=== PATIENT | female | born 2000 | race American Indian/Alaskan Native ===

== ENCOUNTER 2018-06-29 12:01 | Emergency (ER) | payer MEDICAID ==
--- NOTE | 2018-06-29 12:10 | Emergency Department Report ---
Blank Doc - Documentation Documentation: This is a 18-year-old female that presents with vaginal bleeding. Stated is p regnant but denies how knowing how long. Denies f/o with OB. This initial assessment diagnostic orders/clinical plan/treatment(s) is/are subject to change based on patient's health status, clinical progression and re- assessment by fellow clinical providers in the ED. Further treatment and workup at subsequent clinical providers discretion. Patient/guardians urged not to elope from ED s their condition may be serious if not clinically assessed and managed. Initial orders include: 1-Patient sent to [facility] for further evaluation and treatment 2- Labs 3- UA 4- US OB
[2018-06-29 12:15] VITALS: BP 147/73
[2018-06-29 12:44] LABS: Bacteria,Urine 1+ /HPF (Negative); Bilirubin,Urine NEG (Negative); Blood,Urine NEG (Negative); Color,Urine Yellow (Yellow); Mucus,Urine FEW /HPF; Protein,Urine <15 mg/dL mg/dL (Negative); Urobilinogen,Urine < 2.0 mg/dL (<2.0)
[2018-06-29 12:47] LABS: Basophils % (Auto) 0.5 % (0.0-1.8); Eosinophils # (Auto) 0.1 K/mm3 (0.0-0.4); Eosinophils % (Auto) 1.5 % (0.0-4.3); Hematocrit 36.8 % (30.3-42.9); Hemoglobin 11.9 gm/dl (10.1-14.3); Lymphocytes % (Auto) 41.1 % (13.4-35.0); Mean Corpuscular HGB Conc 32 % (30-34); Mean Corpuscular Volume 88 fl (79-97); Monocytes # (Auto) 0.3 K/mm3 (0.0-0.8); Monocytes % (Auto) 5.8 % (0.0-7.3); Platelet Count 251 K/mm3 (140-440); Red Blood Count 4.18 M/mm3 (3.65-5.03); Red Cell Distribution Width 15.3 % (13.2-15.2)
--- NOTE | 2018-06-29 14:04 | Emergency Department Report ---
ED Female HPI - General Chief complaint: Vaginal Bleeding Stated complaint: /BLEEDING Time Seen by Provider: 06/29/18 12:04 Source: patient Mode of arrival: Ambulatory Limitations: No Limitations - History of Present Illness Initial comments: This is a 18-year-old female who presents to the ED stating that 5 days ago she was seen at a clinic and got a positive test. Patient states that she has been having intermittent vaginal bleeding since beginning May. Patient states that bleeding is light and spotting. Patient states initially she thought he was a stress cycle but was test was positive 5 days ago. She denies dysuria, fever, chills, nausea vomiting, abdominal pain Complaint: vaginal bleeding - Related Data Allergies Allergy/AdvReac Type Severity Reaction Status Date / Time No Known Allergies Allergy Unverified 06/29/18 12:15 ED Review of Systems ROS: Stated complaint: /BLEEDING Other details as noted in HPI Comment: All other systems reviewed and negative ED Past Medical Hx - Social History Smoking Status: Unknown if ever smoked Substance Use Type: None ED Physical Exam - General Limitations: No Limitations General appearance: alert, in no apparent distress - Head Head exam: Present: atraumatic, normocephalic - Eye Eye exam: Present: normal appearance - ENT ENT exam: Present: mucous membranes moist - Neck Neck exam: Present: normal inspection - Respiratory Respiratory exam: Present: normal lung sounds bilaterally. Absent: respiratory distress - Cardiovascular Cardiovascular Exam: Present: regular rate, normal rhythm. Absent: systolic murmur, diastolic murmur, rubs, gallop - GI/Abdominal GI/Abdominal exam: Present: soft, normal bowel sounds - Extremities Exam Extremities exam: Present: normal inspection - Back Exam Back exam: Present: normal inspection - Neurological Exam Neurological exam: Present: alert, oriented X3 - Psychiatric Psychiatric exam: Present: normal affect, normal mood - Skin Skin exam: Present: warm, dry, intact, normal color. Absent: rash ED Course Vital Signs 06/29/18 12:10 Temperature 98.5 F Pulse Rate 76 Respiratory 16 Rate Blood Pressure 147/73 O2 Sat by Pulse 100 Oximetry ED Medical Decision Making - Lab Data Result diagrams: 06/29/18 15:33 - Radiology Data Radiology results: report reviewed, image reviewed FINDINGS: Uterus: The uterus is homogeneous in echogenicity without focal mass. The uterus measures 6.9 x 3.0 x 4.5 centimeters. No intrauterine or ectopic was seen. Endometrium: The endometrium is normal in echogenicity. The endometrium measures 7 millimeters. Ovaries: There are two complex, hypoechoic lesions in the left ovary with internal septations, one measuring 1.5 centimeters and the other measuring 1.1 centimeters. No right ovarian lesions. Normal flow is seen to the ovaries. The right ovary measures 2.7 x 1.7 x 2.8 centimeters. The left ovary measures 3.4 x 2.0 x 3.0 centimeters. Free fluid: None. IMPRESSION: 1. No intrauterine or ectopic identified. 2. Left ovarian lesions most likely represent hemorrhagic cysts. Recommend follow-up pelvic ultrasound in 6-10 weeks. Transcribed By: MG Dictated By: BEVERLY TORRES MD Electronically Authenticated By: BEVERLY TORRES MD Signed Date/Time: 06/29/18 1453 - Medical Decision Making 18-year-old female presents to ED with incomplete ED course: Pt received ultra sound, CBC, urinalysis, test and quantitative ED All labs within normal limits, Quantitative is lower than last quantitative that was done 5 days ago. Patient brought in a report with her from the clinic showing no quant level of 57. Today there quant is 11. This is an indication patient is an incomplete spontaneous miscarriage Ultrasound shows See reported above Vital signs normalized patient is in no acute distress. I discussed with the patient if follow-up with her [facility]. I discussed all labs and ultrasound findings with the patient. I discussed with the patient that he if bleeding worsens or new symptoms develop to return to ED immediately Critical care attestation.: If time is entered above; I have spent that time in minutes in the direct care of this critically ill patient, excluding procedure time. ED Disposition Clinical Impression: Incomplete Disposition: DC-01 TO HOME OR SELFCARE Is pt being admited?: No Does the pt Need Aspirin: No Condition: Stable Instructions: Spontaneous Miscarriage (ED) Additional Instructions: Make sure to follow up with the [facility] as discussed. Take Motrin as needed for a if you develop abdominal cramping. If you have any worsening symptoms or develop new symptoms please return to ED immediately. Referrals: NIKKI HAYES MD [Primary Care Provider] - 3-5 Days [facility] [Provider Group] - 3-5 Days [facility] [Provider Group] - 3-5 Days Forms: Work/School Release Form(ED)
--- NOTE | 2018-06-29 14:53 | Ultrasound Report ---
FINAL REPORT EXAM: US OB < = 14 WEEKS FETUS HISTORY: vaginal bleeding TECHNIQUE: Grayscale and color doppler ultrasound imaging of the pelvis was performed transabdominal ly and transvaginally. PRIORS: None. FINDINGS: Uterus: The uterus is homogeneous in echogenicity without focal mass. The uterus measures 6.9 x 3.0 x 4.5 centimeters. No intrauterine or ectopic was seen. Endometrium: The endometrium is normal in echogenicity. The endometrium measures 7 millimeters. Ovaries: There are two complex, hypoechoic lesions in the left ovary with internal septations, one me asuring 1.5 centimeters and the other measuring 1.1 centimeters. No right ovarian lesions. Normal fl ow is seen to the ovaries. The right ovary measures 2.7 x 1.7 x 2.8 centimeters. The left ovary measu res 3.4 x 2.0 x 3.0 centimeters. Free fluid: None. IMPRESSION: 1. No intrauterine or ectopic identified. 2. Left ovarian lesions most likely represent hemorrhagic cysts. Recommend follow-up pelvic ultrasoun d in 6-10 weeks.
--- NOTE | 2018-06-29 14:53 | Ultrasound Report ---
FINAL REPORT EXAM: US OB TRANSVAGINAL HISTORY: vaginal bleeding TECHNIQUE: Grayscale and color doppler ultrasound imaging of the pelvis was performed transabdomina lly and transvaginally. PRIORS: None. FINDINGS: Uterus: The uterus is homogeneous in echogenicity without focal mass. The uterus measures 6.9 x 3.0 x 4.5 centimeters. No intrauterine or ectopic was seen. Endometrium: The endometrium is normal in echogenicity. The endometrium measures 7 millimeters. Ovaries: There are two complex, hypoechoic lesions in the left ovary with internal septations, one me asuring 1.5 centimeters and the other measuring 1.1 centimeters. No right ovarian lesions. Normal fl ow is seen to the ovaries. The right ovary measures 2.7 x 1.7 x 2.8 centimeters. The left ovary measu res 3.4 x 2.0 x 3.0 centimeters. Free fluid: None. IMPRESSION: 1. No intrauterine or ectopic identified. 2. Left ovarian lesions most likely represent hemorrhagic cysts. Recommend follow-up pelvic ultrasoun d in 6-10 weeks.
[2018-06-29 15:55] LABS: Basophils % (Auto) 0.7 % (0.0-1.8); Eosinophils # (Auto) 0.1 K/mm3 (0.0-0.4); Eosinophils % (Auto) 2.1 % (0.0-4.3); Hematocrit 34.3 % (30.3-42.9); Hemoglobin 11.2 gm/dl (10.1-14.3); Lymphocytes # (Auto) 2.5 K/mm3 (1.2-5.4); Lymphocytes % (Auto) 47.2 % (13.4-35.0); Mean Corpuscular HGB Conc 33 % (30-34); Mean Corpuscular Volume 87 fl (79-97); Monocytes # (Auto) 0.2 K/mm3 (0.0-0.8); Monocytes % (Auto) 4.7 % (0.0-7.3); Platelet Count 250 K/mm3 (140-440); Red Blood Count 3.96 M/mm3 (3.65-5.03); Red Cell Distribution Width 15.2 % (13.2-15.2)
== END 2018-06-29 16:42 | disposition home or self-care (01) ==
LOC: ED 12:01
DX: O03.4 Incomplete spontaneous abortion without complication (principal); Z3A.01 Less than 8 weeks gestation of pregnancy
CPT/HCPCS: 36415; 76801; 76817; 81001; 84702; 85025; 86850; 86900; 86901; 99284

== ENCOUNTER 2018-09-03 11:33 | Emergency (ER) | payer MEDICAID ==
[2018-09-03 12:33] VITALS: BP 146/90
--- NOTE | 2018-09-03 12:41 | Emergency Department Report ---
ED Recheck HPI - General Chief Complaint: Dental/Oral Stated Complaint: RT SIDE TOOTH PAIN/SWELLING Time Seen by Provider: 09/03/18 12:31 Source: patient Mode of arrival: Ambulatory Limitations: No Limitations - History of Present Illness Initial Comments: This is a 18-year-old female that present with dental pain. Patient stated was seen by a dentist and was prescribed motrin with no relief. Patient also was prescribed clinda. Patient stated was instructed to come to the ED for stronger pain medications. Patient denies any fever, chills, headache, nausea, vomiting, chest pain, or shortness of breathe. Denies any allergies. MD Complaint: medication refill request -: days(s) (2) Returns Today for: request for prescription Symptoms Since Prior Visit: no new symptoms Associated Symptoms: none. denies: fever, chills, chest pain, shortness of breath, rash, malaise, nasuea, abdominal pain - Related Data Previous Rx's Medication Instructions Recorded Last Taken Type Acetaminophen/Codeine [Tylenol 1 tab PO Q6H PRN #12 tab 09/03/18 Unknown Rx /Codeine # 3 tab] Allergies Allergy/AdvReac Type Severity Reaction Status Date / Time No Known Allergies Allergy Unverified 06/29/18 12:15 ED Review of Systems ROS: Stated complaint: RT SIDE TOOTH PAIN/SWELLING Other details as noted in HPI Constitutional: denies: chills, fever Eyes: denies: eye pain, eye discharge, vision change ENT: dental pain. denies: ear pain, throat pain Respiratory: denies: cough, shortness of breath, wheezing Cardiovascular: denies: chest pain, palpitations Endocrine: no symptoms reported Gastrointestinal: denies: abdominal pain, nausea, diarrhea Genitourinary: denies: urgency, dysuria, discharge Musculoskeletal: denies: back pain, joint swelling, arthralgia Skin: denies: rash, lesions Neurological: denies: headache, weakness, paresthesias Psychiatric: denies: anxiety, depression Hematological/Lymphatic: denies: easy bleeding, easy bruising ED Past Medical Hx - Past Medical History Previous Medical History?: No - Surgical History Past Surgical History?: No - Social History Smoking Status: Unknown if ever smoked Substance Use Type: None - Medications Home Medications: Home Medications Medication Instructions Recorded Confirmed Last Taken Type Acetaminophen/Codeine [Tylenol 1 tab PO Q6H PRN #12 tab 09/03/18 Unknown Rx /Codeine # 3 tab] ED Physical Exam - General Limitations: No Limitations General appearance: alert, in no apparent distress - Head Head exam: Present: atraumatic, normocephalic - ENT ENT exam: Present: normal exam, other (no facial swelling. no abscess) - Neck Neck exam: Present: normal inspection, full ROM ED Course Vital Signs 09/03/18 12:27 Temperature 98.9 F Pulse Rate 71 Respiratory 16 Rate Blood Pressure 146/90 - Reevaluation(s) Reevaluation #1: 09/03/18 12:39 Patient is speaking in full sentences with no signs of distress noted. Critical care attestation.: If time is entered above; I have spent that time in minutes in the direct care of this critically ill patient, excluding procedure time. ED Disposition Clinical Impression: Pain, dental Disposition: DC-01 TO HOME OR SELFCARE Is pt being admited?: No Does the pt Need Aspirin: No Condition: Stable Instructions: Acetaminophen/Codeine (By mouth) Prescriptions: Acetaminophen/Codeine [Tylenol /Codeine # 3 tab] 1 tab PO Q6H PRN #12 tab PRN Reason: Pain , Severe (7-10) Referrals: PRIMARY CARE, [Referring] - 3-5 Days MIGUELINA LO MD [Staff Physician] - 3-5 Days [facility] [Outside] - 3-5 Days
== END 2018-09-03 13:00 | disposition home or self-care (01) ==
LOC: ED 11:33
DX: K08.89 Other specified disorders of teeth and supporting structures (principal)
CPT/HCPCS: 99282

== ENCOUNTER 2018-10-23 09:37 | Emergency (ER) | payer MEDICAID ==
[2018-10-23 09:58] VITALS: BP 129/82
[2018-10-23 10:48] LABS: HCG Qualitative,Urine Positive (Negative)
--- NOTE | 2018-10-23 11:09 | Emergency Department Report ---
ED General Adult HPI - General Chief complaint: Dental/Oral Stated complaint: /TOOTH ABSCESS Time Seen by Provider: 10/23/18 11:08 Source: patient, RN notes reviewed Mode of arrival: Ambulatory Limitations: No Limitations - History of Present Illness Initial comments: This is a 18-year-old female. The patient is not known to this provider previ ously. The patient presents to the emergency room with 2 complaints Complaint #1, dental pain, close to Teeth numbers 29, 30, 31. Reportedly saw a dentist yesterday, was prescribed medication, ibuprofen, and one of the prescription that the patient cannot recall. She wants to note the prescriptions are safe. Patient was not able to tell me the name of the second prescription. She denies headache, neck pain, chest pain, abdominal pain, shortness of breath irritated/obstructive urinary symptoms. She has gingival discomfort, but denies exquisite sensitivity to hot, cold. Complaint #2, request for test confirmation. Took a home test yesterday. It is reportedly positive. Last menstrual period 08/11/2018. Denies urinary symptoms, vaginal bleeding, lower abdominal pain and/or cramping. -: Sudden Location: mouth Radiation: non-radiation Quality: aching Consistency: intermittent Improves with: rest Worsens with: eating, movement Associated Symptoms: denies other symptoms - Related Data Previous Rx's Medication Instructions Recorded Last Taken Type Acetaminophen [Non-Aspirin Extra 500 mg PO Q6HR PRN #30 tablet 10/23/18 Unknown Rx Strength] Chlorhexidine Mouthwash [Peridex] 15 ml MM BID #1 bottle 10/23/18 Unknown Rx Penicillin Vk [Veetids TAB] 500 mg PO Q8HR #42 tablet 10/23/18 Unknown Rx Vit-Fe Fumar-FA [ 1 tab PO QDAY #30 tablet 10/23/18 Unknown Rx Vitamin] Allergies Allergy/AdvReac Type Severity Reaction Status Date / Time lactose Allergy Rash Verified 10/23/18 09:39 ED Review of Systems ROS: Stated complaint: /TOOTH ABSCESS Other details as noted in HPI Constitutional: denies: fever Eyes: denies: eye discharge ENT: dental pain Respiratory: denies: cough Cardiovascular: denies: chest pain, palpitations Gastrointestinal: denies: abdominal pain Genitourinary: denies: dysuria Musculoskeletal: denies: back pain, arthralgia Skin: denies: lesions Neurological: denies: headache, weakness ED Past Medical Hx - Past Medical History Previous Medical History?: No - Surgical History Past Surgical History?: No - Social History Smoking Status: Current Every Day Smoker Substance Use Type: Alcohol - Medications Home Medications: Home Medications Medication Instructions Recorded Confirmed Last Taken Type Acetaminophen [Non-Aspirin Extra 500 mg PO Q6HR PRN #30 tablet 10/23/18 Unknown Rx Strength] Chlorhexidine Mouthwash [Peridex] 15 ml MM BID #1 bottle 10/23/18 Unknown Rx Penicillin Vk [Veetids TAB] 500 mg PO Q8HR #42 tablet 10/23/18 Unknown Rx Vit-Fe Fumar-FA [ 1 tab PO QDAY #30 tablet 10/23/18 Unknown Rx Vitamin] ED Physical Exam - General Limitations: No Limitations General appearance: alert, in no apparent distress - Head Head exam: Present: atraumatic, normocephalic - Eye Eye exam: Present: normal appearance, EOMI. Absent: nystagmus - ENT ENT exam: Present: normal exam, normal orophraynx, mucous membranes moist, normal external ear exam, other (minimal gingival swelling noted along the lateral border of teeth #29, 30. There is no tenderness to percussion. There is no stridor or dysphonia.) - Neck Neck exam: Present: normal inspection, full ROM. Absent: tenderness, meningismus - Respiratory Respiratory exam: Present: normal lung sounds bilaterally. Absent: respiratory distress - Cardiovascular Cardiovascular Exam: Present: regular rate, normal rhythm, normal heart sounds. Absent: bradycardia, tachycardia, irregular rhythm, systolic murmur, diastolic murmur, rubs, gallop - GI/Abdominal GI/Abdominal exam: Present: soft. Absent: distended, tenderness, guarding, rebound, rigid, pulsatile mass - Extremities Exam Extremities exam: Present: normal inspection, full ROM, other (2+ pulses noted in the bilateral upper extremities. There is no long bony tenderness. Muscular compartment soft.) - Back Exam Back exam: Present: normal inspection, full ROM. Absent: tenderness, CVA tenderness (R), CVA tenderness (L), paraspinal tenderness, vertebral tenderness - Neurological Exam Neurological exam: Present: alert, normal gait, other (Extraocular movements intact. Tongue midline. No facial droop. Facial sensation intact to light touch in the V1, V2, V3 distribution bilaterally. 5 and 5 strength in 4 extremities.. Sensation is intact to light touch in 4 extremities.). Absent: motor sensory deficit - Psychiatric Psychiatric exam: Present: normal affect, normal mood - Skin Skin exam: Present: warm, dry, intact, normal color. Absent: rash ED Course Vital Signs 10/23/18 09:56 Temperature 98.7 F Pulse Rate 81 Respiratory 18 Rate Blood Pressure 129/82 O2 Sat by Pulse 98 Oximetry ED Medical Decision Making - Lab Data Vital Signs 10/23/18 09:56 Temperature 98.7 F Pulse Rate 81 Respiratory 18 Rate Blood Pressure 129/82 O2 Sat by Pulse 98 Oximetry Lab Results 10/23/18 Range/Units 10:35 Urine HCG, Qual Positive A (Negative) - Medical Decision Making Differential diagnosis, including not limited to: Dentalgia, gingivitis, encounter for test Assessment and plan: 18-year-old female with 2 complaints. Complaint #1, encounter for test. Urinalysis positive. No abdominal pain or tenderness. Does not require emergency imaging or dedicated laboratory studies. Counseled to follow up in outpatient [facility] doctor to initiate outpatient care. Counseled to discontinue ibuprofen, Motrin, Naprosyn, NSAID consumption. Counseled that she may qualify for emergency Medicaid. Complaint #2, dental discomfort. Discontinue ibuprofen. Initiate oral antibiotics. Initiate chlorhexidine. Acetaminophen for pain. Outpatient dental follow-up. Critical care attestation.: If time is entered above; I have spent that time in minutes in the direct care of this critically ill patient, excluding procedure time. ED Disposition Clinical Impression: Dentalgia, Encounter for test, result positive Disposition: DC-01 TO HOME OR SELFCARE Is pt being admited?: No Condition: Stable Additional Instructions: Do not take Motrin, ibuprofen, Naprosyn, Aleve. Please get the name of the second prescription that the dentist provided to the patient yesterday, and consult a medical provider as soon as possible to determine safety of this particular medication in . As the medication is not present currently in the emergency room, and the patient was not able to provide the name of the medication to the medical provider, medical recommendations for the second prescription are not able to be delivered. Please follow-up with your outpatient dentist as scheduled. Use the chlorhexidine mouthwash as directed, take the acetaminophen as needed for pain, and take the antibiotics as directed. Dictated vitamins as directed, and follow up with an outpatient [facility] doctor to initiate outpatient care. Please return to the emergency room right away with you, worsened or different symptoms, or symptoms not present on the initial emergency room evaluation. Referrals: [facility] [Primary Care Provider] - 3-5 Days [facility] [Provider Group] - 3-5 Days [facility] [Provider Group] - 3-5 Days [facility] [Provider Group] - 3-5 Days [facility] [Outside] - 3-5 Days
== END 2018-10-23 11:34 | disposition home or self-care (01) ==
LOC: ED 09:37
DX: O26.891 Other specified pregnancy related conditions, first trimester (principal); K08.89 Other specified disorders of teeth and supporting structures; Z3A.01 Less than 8 weeks gestation of pregnancy; F17.200 Nicotine dependence, unspecified, uncomplicated
CPT/HCPCS: 81025

== ENCOUNTER 2018-11-19 20:18 | Emergency (ER) | payer MEDICAID ==
--- NOTE | 2018-11-19 21:12 | Event Note ---
ED Screening Note ED Screening Note: states she is 11 weeks states she been to OB for confirmation of her states notice a small amount of bleeding today states was diagnosed with a UTI 2-3 days ago, has not started her abx no abd pain [employer]: Ijeomacycle had her first US on 10/16/18 /P:0/A:0 This initial assessment/diagnostic orders/clinical plan/treatment(s) is/are subject to change based on patients health status, clinical progression and re- assessment by fellow clinical providers in the ED. Further treatment and workup at subsequent clinical providers discretion. Patient/guardian urged not to elope from the ED as their condition may be serious if not clinically assessed and managed. Initial orders include: labs, US, UA
[2018-11-19 21:15] VITALS: BP 131/56
[2018-11-19 21:47] LABS: Basophils % (Auto) 0.5 % (0.0-1.8); Eosinophils # (Auto) 0.1 K/mm3 (0.0-0.4); Eosinophils % (Auto) 1.3 % (0.0-4.3); Hematocrit 34.4 % (30.3-42.9); Hemoglobin 11.4 gm/dl (10.1-14.3); Lymphocytes # (Auto) 2.6 K/mm3 (1.2-5.4); Lymphocytes % (Auto) 33.9 % (13.4-35.0); Mean Corpuscular HGB Conc 33 % (30-34); Mean Corpuscular Volume 88 fl (79-97); Monocytes # (Auto) 0.6 K/mm3 (0.0-0.8); Monocytes % (Auto) 7.6 % (0.0-7.3); Platelet Count 315 K/mm3 (140-440); Red Blood Count 3.89 M/mm3 (3.65-5.03); Red Cell Distribution Width 17.3 % (13.2-15.2)
--- NOTE | 2018-11-19 22:16 | Ultrasound Report ---
Obstetrical ultrasound first trimester INDICATION: Pelvic pain with vaginal bleeding FINDINGS: Single intrauterine with a crown-rump length that measures 52 mm measuring 11 wee ks and 6 days. The heart rates 169 bpm. No free fluid appreciated. Both ovaries are unremarkabl e. IMPRESSION: Single living intrauterine measuring about 11 weeks and 6 days, as above. Signer Name: Ceferino Garsia MD Signed: 11/19/2018 10:12 PM Workstation Name: [id number]
[2018-11-19 22:42] LABS: Bacteria,Urine 4+ /HPF (Negative); Bilirubin,Urine NEG (Negative); Blood,Urine NEG (Negative); Color,Urine Amber (Yellow); Mucus,Urine 3+ /HPF; Urobilinogen,Urine < 2.0 mg/dL (<2.0)
--- NOTE | 2018-11-20 00:51 | Emergency Department Report ---
ED Female HPI - General Chief complaint: Chest Pain Stated complaint: VAGINAL BLEEDING Time Seen by Provider: 11/19/18 21:09 Source: patient Mode of arrival: Ambulatory Limitations: No Limitations - History of Present Illness MD Complaint: vaginal bleeding, vaginal discharge - Related Data Previous Rx's Medication Instructions Recorded Last Taken Type Acetaminophen [Non-Aspirin Extra 500 mg PO Q6HR PRN #30 tablet 10/23/18 Unknown Rx Strength] Chlorhexidine Mouthwash [Peridex] 15 ml MM BID #1 bottle 10/23/18 Unknown Rx Penicillin Vk [Veetids TAB] 500 mg PO Q8HR #42 tablet 10/23/18 Unknown Rx Vit-Fe Fumar-FA [ 1 tab PO QDAY #30 tablet 10/23/18 Unknown Rx Vitamin] Nitrofurantoin [place]/M-Cryst 100 mg PO Q12HR #14 capsule 11/20/18 Unknown Rx [Macrobid CAP] metroNIDAZOLE [Flagyl] 2,000 mg PO ONCE #4 tab 11/20/18 Unknown Rx Allergies Allergy/AdvReac Type Severity Reaction Status Date / Time lactose Allergy Rash Verified 10/23/18 09:39 ED Review of Systems ROS: Stated complaint: VAGINAL BLEEDING Other details as noted in HPI ED Past Medical Hx - Past Medical History Previous Medical History?: Yes Hx Hypertension: No Hx CVA: No Hx Heart Attack/AMI: No Hx Congestive Heart Failure: No Hx Diabetes: No Hx Deep Vein Thrombosis: No Hx Pulmonary Embolism: No Hx GERD: No Hx Liver Disease: No Hx Renal Disease: No Hx of Cancer: No Hx Sickle Cell Disease: No Hx Arthritis: No Hx Headaches / Migraines: No Hx Seizures: No Hx Kidney Stones: No Hx Psychiatric Treatment: No Hx Asthma: No Hx COPD: No Hx Tuberculosis: No Hx Dementia: No Hx HIV: No - Surgical History Past Surgical History?: No Hx Coronary Stent: No Hx Open Heart Surgery: No Hx Pacemaker: No Hx Internal Defibrillator: No Hx Cholecystectomy: No Hx Appendectomy: No Hx Breast Surgery: No - Social History Smoking Status: Current Some Day Smoker Substance Use Type: None - Medications Home Medications: Home Medications Medication Instructions Recorded Confirmed Last Taken Type Acetaminophen [Non-Aspirin Extra 500 mg PO Q6HR PRN #30 tablet 10/23/18 Unknown Rx Strength] Chlorhexidine Mouthwash [Peridex] 15 ml MM BID #1 bottle 10/23/18 Unknown Rx Penicillin Vk [Veetids TAB] 500 mg PO Q8HR #42 tablet 10/23/18 Unknown Rx Vit-Fe Fumar-FA [ 1 tab PO QDAY #30 tablet 10/23/18 Unknown Rx Vitamin] Nitrofurantoin [place]/M-Cryst 100 mg PO Q12HR #14 capsule 11/20/18 Unknown Rx [Macrobid CAP] metroNIDAZOLE [Flagyl] 2,000 mg PO ONCE #4 tab 11/20/18 Unknown Rx ED Physical Exam - General Limitations: No Limitations ED Course Vital Signs 11/19/18 21:10 Temperature 99 F Pulse Rate 67 Respiratory 18 Rate Blood Pressure 131/56 Blood Pressure 131/56 [Right] O2 Sat by Pulse 100 Oximetry ED Medical Decision Making - Lab Data Result diagrams: 11/19/18 21:31 - Medical Decision Making 18-year-old, 11 week 6 day female with excessive vaginal discharge and obvious chicken decent bacterial vaginosis on her wet prep is polymorph cells, 4 area still exists. Advised her to follow up with COFFEE SHOP ATTENDANT for definitive management of these infection and GC should provide her with Flagyl and Zithromax today, which is safe for . Discussed ultrasound report and safe sex and she been advised to refrain from sex until clear, by her COFFEE SHOP ATTENDANT Critical care attestation.: If time is entered above; I have spent that time in minutes in the direct care of this critically ill patient, excluding procedure time. ED Disposition Clinical Impression: Trichomonal infection, Bacterial vaginal infection, Yeast infection Disposition: DC-01 TO HOME OR SELFCARE Is pt being admited?: No Does the pt Need Aspirin: No Condition: Stable Instructions: Bacterial Vaginosis (ED), Trichomoniasis (ED), Safe Sex (ED), Sexually Transmitted Diseases (ED), Vulvovaginal Candidiasis (ED) Additional Instructions: Please call your COFFEE SHOP ATTENDANT for further treatment. He did have yeast infection, which also wants treatment medications as category C or greater sneezy approval before implementation. There is also a strong. Given the polymorph cells on y our prep of having a gonorrhea or chlamydia infection. Please follow up close again with the COFFEE SHOP ATTENDANT for for treatment of this as well. Please oral sexual contact until you are cleared by COFFEE SHOP ATTENDANT Prescriptions: metroNIDAZOLE [Flagyl] 2,000 mg PO ONCE #4 tab Nitrofurantoin [place]/M-Cryst [Macrobid CAP] 100 mg PO Q12HR #14 capsule Referrals: LANDON BRAY MD [Primary Care Provider] - 3-5 Days Forms: STI Treatment and Prevention
[2018-11-20] MEDS ORDERED: ZITHROMAX PO STA (01:42)
== END 2018-11-20 02:04 | disposition home or self-care (01) ==
LOC: ED 20:18
DX: N76.0 Acute vaginitis (principal); B37.9 Candidiasis, unspecified; A59.9 Trichomoniasis, unspecified; F17.200 Nicotine dependence, unspecified, uncomplicated
CPT/HCPCS: 36415; 76801; 81001; 84702; 85025; 86900; 86901; 87086; 87210; 87591

== ENCOUNTER 2018-11-26 07:27 | Emergency (ER) | payer MEDICAID ==
[2018-11-26 08:02] LABS: Basophils % (Auto) 0.5 % (0.0-1.8); Eosinophils # (Auto) 0.1 K/mm3 (0.0-0.4); Eosinophils % (Auto) 0.8 % (0.0-4.3); Hemoglobin 11.4 gm/dl (10.1-14.3); Lymphocytes # (Auto) 1.7 K/mm3 (1.2-5.4); Lymphocytes % (Auto) 25.3 % (13.4-35.0); Mean Corpuscular HGB Conc 34 % (30-34); Mean Corpuscular Volume 88 fl (79-97); Monocytes # (Auto) 0.2 K/mm3 (0.0-0.8); Monocytes % (Auto) 3.1 % (0.0-7.3); Platelet Count 306 K/mm3 (140-440); Red Blood Count 3.88 M/mm3 (3.65-5.03); Red Cell Distribution Width 16.7 % (13.2-15.2)
[2018-11-26 08:18] LABS: Bacteria,Urine 1+ /HPF (Negative); Bilirubin,Urine NEG (Negative); Blood,Urine NEG (Negative); Calcium Oxalate Crystals,Urine 2+; Hyaline Casts,Urine 49 /LPF; Mucus,Urine 3+ /HPF; Urobilinogen,Urine < 2.0 mg/dL (<2.0)
[2018-11-26 08:21] LABS: Color,Urine Yellow (Yellow)
--- NOTE | 2018-11-26 08:21 | Emergency Department Report ---
ED General Adult HPI - General Chief complaint: Syncope Stated complaint: DIZZY/HYPERVENTALATE Time Seen by Provider: 11/26/18 08:04 Source: EMS Mode of arrival: Ambulatory Limitations: No Limitations - History of Present Illness Initial comments: This is a 18-year-old presents to ED at approximately 12 weeks followed by POKER MANAGER at my [facility] for care complaining having an episode this morning she was on her way to interview. Patient states that she has smoked half a block roughly around 4 AM this morning in and was on no weight a bus stop when she started experiencing his symptoms. Patient states that she felt shaky Lynn body twitching while she was waiting for the bus. Patient does not recall passing out or losing consciousness. She denies any pain, dizziness, chest pain prior to start of episode. She states she has no history of seizures, anxiety disorders, syncope in the past. Patient denies fevers/chills/nausea vomiting/abdominal pain/chest pain/vaginal bleeding/vaginal discharge or pelvic pain or dysuria - Related Data Previous Rx's Medication Instructions Recorded Last Taken Type Acetaminophen [Non-Aspirin Extra 500 mg PO Q6HR PRN #30 tablet 10/23/18 Unknown Rx Strength] Chlorhexidine Mouthwash [Peridex] 15 ml MM BID #1 bottle 10/23/18 Unknown Rx Penicillin Vk [Veetids TAB] 500 mg PO Q8HR #42 tablet 10/23/18 Unknown Rx Vit-Fe Fumar-FA [ 1 tab PO QDAY #30 tablet 10/23/18 Unknown Rx Vitamin] Nitrofurantoin [place]/M-Cryst 100 mg PO Q12HR #14 capsule 11/20/18 Unknown Rx [Macrobid CAP] metroNIDAZOLE [Flagyl] 2,000 mg PO ONCE #4 tab 11/20/18 Unknown Rx Allergies Allergy/AdvReac Type Severity Reaction Status Date / Time lactose Allergy Rash Verified 10/23/18 09:39 ED Review of Systems ROS: Stated complaint: DIZZY/HYPERVENTALATE Other details as noted in HPI Comment: All other systems reviewed and negative ED Past Medical Hx - Past Medical History Previous Medical History?: No Hx Hypertension: No Hx CVA: No Hx Heart Attack/AMI: No Hx Congestive Heart Failure: No Hx Diabetes: No Hx Deep Vein Thrombosis: No Hx Pulmonary Embolism: No Hx GERD: No Hx Liver Disease: No Hx Renal Disease: No Hx Sickle Cell Disease: No Hx Arthritis: No Hx Headaches / Migraines: No Hx Seizures: No Hx Kidney Stones: No Hx Psychiatric Treatment: No Hx Asthma: No Hx COPD: No Hx Tuberculosis: No Hx Dementia: No Hx HIV: No - Surgical History Past Surgical History?: No Hx Coronary Stent: No Hx Open Heart Surgery: No Hx Pacemaker: No Hx Internal Defibrillator: No Hx Cholecystectomy: No Hx Appendectomy: No Hx Breast Surgery: No - Social History Smoking Status: Never Smoker Substance Use Type: Marijuana - Medications Home Medications: Home Medications Medication Instructions Recorded Confirmed Last Taken Type Acetaminophen [Non-Aspirin Extra 500 mg PO Q6HR PRN #30 tablet 10/23/18 Unknown Rx Strength] Chlorhexidine Mouthwash [Peridex] 15 ml MM BID #1 bottle 10/23/18 Unknown Rx Penicillin Vk [Veetids TAB] 500 mg PO Q8HR #42 tablet 10/23/18 Unknown Rx Vit-Fe Fumar-FA [ 1 tab PO QDAY #30 tablet 10/23/18 Unknown Rx Vitamin] Nitrofurantoin [place]/M-Cryst 100 mg PO Q12HR #14 capsule 11/20/18 Unknown Rx [Macrobid CAP] metroNIDAZOLE [Flagyl] 2,000 mg PO ONCE #4 tab 11/20/18 Unknown Rx ED Physical Exam - General Limitations: No Limitations General appearance: alert, in no apparent distress - Head Head exam: Present: atraumatic, normocephalic, normal inspection - Eye Eye exam: Present: normal appearance, PERRL Pupils: Present: normal accommodation - ENT ENT exam: Present: mucous membranes moist - Neck Neck exam: Present: normal inspection, full ROM. Absent: tenderness, lymphadenopathy - Respiratory Respiratory exam: Present: normal lung sounds bilaterally. Absent: respiratory distress, wheezes, rales - Cardiovascular Cardiovascular Exam: Present: regular rate, normal rhythm. Absent: systolic murmur, diastolic murmur, rubs, gallop - GI/Abdominal GI/Abdominal exam: Present: soft, normal bowel sounds. Absent: distended, tenderness, guarding - Extremities Exam Extremities exam: Present: normal inspection, full ROM - Back Exam Back exam: Present: normal inspection, full ROM. Absent: tenderness, CVA tenderness (R), CVA tenderness (L) - Neurological Exam Neurological exam: Present: alert, oriented X3, CN II-XII intact, normal gait - Psychiatric Psychiatric exam: Present: normal affect, normal mood - Skin Skin exam: Present: warm, dry, intact, normal color. Absent: rash ED Course Vital Signs 11/26/18 07:35 Temperature 98.3 F Pulse Rate 86 Respiratory 16 Rate Blood Pressure 141/73 O2 Sat by Pulse 100 Oximetry ED Medical Decision Making - Lab Data Result diagrams: 11/26/18 07:49 11/26/18 07:49 - Medical Decision Making This is a 18-year-old female who presents to ED with a mild cystitis. CBC, BMP, urinalysis and test performed. All labs within normal limits. Patient mildly dehydrated. Urinalysis positive for leukocyte esterase, WBCs, trace ketones Discussed signs with patient. Discussed the patient to increase hydration. Discussed follow-up with her POKER MANAGER. Discussed cessation of smoking Critical care attestation.: If time is entered above; I have spent that time in minutes in the direct care of this critically ill patient, excluding procedure time. ED Disposition Clinical Impression: Cystitis, Intermittent lightheadedness Disposition: TO HOME OR SELFCARE Is pt being admited?: No Does the pt Need Aspirin: No Condition: Stable Instructions: Urinary Tract Infection in Women (ED), Lightheadedness (ED), (ED) Additional Instructions: Make sure to follow up with the primary care physician as well as your POKER MANAGER as discussed. Take all your medications as you've been prescribed. If you have any worsening symptoms or develop new symptoms please return to ED immediately. Referrals: LANDON BRAY MD [Primary Care Provider] - 3-5 Days [facility] [Provider Group] - 3-5 Days Forms: Work/School Release Form(ED) Time of Disposition: 10:01
[2018-11-26 08:25] LABS: Alanine Aminotransferase 9 units/L (7-56); Albumin 3.7 g/dL (3.9-5); BUN/Creatinine Ratio 13; Blood Urea Nitrogen 8 mg/dL (7-17); Calcium 9.7 mg/dL (8.4-10.2); Hemolysis Index 2
[2018-11-26] MEDS ORDERED: NACL 0.9% 1000 ML 1,000 ML IV ONE (08:44)
[2018-11-26] MEDS ORDERED: ROCEPHIN 250 MG in NACL 0.9% 50 ML IV ONE (09:30)
[2018-11-26 10:41] VITALS: BP 114/81
== END 2018-11-26 11:17 | disposition home or self-care (01) ==
LOC: ED 07:27
DX: O23.11 Infections of bladder in pregnancy, first trimester (principal); B96.89 Other specified bacterial agents as the cause of diseases classified elsewhere; O26.891 Other specified pregnancy related conditions, first trimester; E86.0 Dehydration; F12.10 Cannabis abuse, uncomplicated; Z79.899 Other long term (current) drug therapy; Z91.09 Other allergy status, other than to drugs and biological substances; Z3A.12 12 weeks gestation of pregnancy
CPT/HCPCS: 36415; 80053; 81001; 84702; 85025; 87086; 96365; 99283; J0696; J7030

== ENCOUNTER 2018-12-04 11:07 | Emergency (ER) | payer MEDICAID ==
--- NOTE | 2018-12-04 11:26 | Event Note ---
ED Screening Note Date of service: 12/04/18 Time: 11:25 ED Screening Note: This is a 18 y.o. F. that presents to the ER with vaginal pruitus and vaginal discharge for a few days. This initial assessment/diagnostic orders/clinical plan/treatment(s) is/are subject to change based on patients health status, clinical progression and re- assessment by fellow clinical providers in the ED. Further treatment and workup at subsequent clinical providers discretion. Patient/guardian urged not to elope from the ED as their condition may be serious if not clinically assessed and managed. Initial orders include: Labs
--- NOTE | 2018-12-04 11:50 | Emergency Department Report ---
ED Female HPI - General Chief complaint: Urogenital-Female Stated complaint: VAGINAL PAIN Time Seen by Provider: 12/04/18 11:25 Source: patient Mode of arrival: Ambulatory Limitations: No Limitations - History of Present Illness Initial comments: Patient is a 18-year-old female who presents the emergency room with complaints of a vaginal discharge that began 2 days ago. pt has associated vaginal itching. Denies any dysuria, abdominal pain, vaginal bleeding, fever. She is currently 13 weeks . She is sexually active. She was just treated for Chlamydia and Trichomonas on 11/20. She states her partner was tested and treated. she denies any past medical history or allergies to medications. - Related Data Previous Rx's Medication Instructions Recorded Last Taken Type Acetaminophen [Non-Aspirin Extra 500 mg PO Q6HR PRN #30 tablet 10/23/18 Unknown Rx Strength] Chlorhexidine Mouthwash [Peridex] 15 ml MM BID #1 bottle 10/23/18 Unknown Rx Penicillin Vk [Veetids TAB] 500 mg PO Q8HR #42 tablet 10/23/18 Unknown Rx Vit-Fe Fumar-FA [ 1 tab PO QDAY #30 tablet 10/23/18 Unknown Rx Vitamin] Nitrofurantoin [place]/M-Cryst 100 mg PO Q12HR #14 capsule 11/20/18 Unknown Rx [Macrobid CAP] metroNIDAZOLE [Flagyl] 2,000 mg PO ONCE #4 tab 11/20/18 Unknown Rx Miconazole 2% [Monistat 7 Vag 1 applicator VG QHS 7 Days #7 tube 12/04/18 Unknown Rx Cream] Miconazole 2% [Monistat-Derm] 1 applicatio TP BID #1 tube 12/04/18 Unknown Rx metroNIDAZOLE [metroNIDAZOLE 70 gm VG DAILY #5 gel.w.appl 12/04/18 Unknown Rx VAGINAL 0.75% gel] Allergies Allergy/AdvReac Type Severity Reaction Status Date / Time lactose Allergy Rash Verified 10/23/18 09:39 ED Review of Systems ROS: Stated complaint: VAGINAL PAIN Other details as noted in HPI Comment: All other systems reviewed and negative ED Past Medical Hx - Past Medical History Hx Hypertension: No Hx CVA: No Hx Heart Attack/AMI: No Hx Congestive Heart Failure: No Hx Diabetes: No Hx Deep Vein Thrombosis: No Hx Pulmonary Embolism: No Hx GERD: No Hx Liver Disease: No Hx Renal Disease: No Hx Sickle Cell Disease: No Hx Arthritis: No Hx Headaches / Migraines: No Hx Seizures: No Hx Kidney Stones: No Hx Psychiatric Treatment: No Hx Asthma: No Hx COPD: No Hx Tuberculosis: No Hx Dementia: No Hx HIV: No - Surgical History Hx Coronary Stent: No Hx Open Heart Surgery: No Hx Pacemaker: No Hx Internal Defibrillator: No Hx Cholecystectomy: No Hx Appendectomy: No Hx Breast Surgery: No - Social History Smoking Status: Never Smoker Substance Use Type: None - Medications Home Medications: Home Medications Medication Instructions Recorded Confirmed Last Taken Type Acetaminophen [Non-Aspirin Extra 500 mg PO Q6HR PRN #30 tablet 10/23/18 Unknown Rx Strength] Chlorhexidine Mouthwash [Peridex] 15 ml MM BID #1 bottle 10/23/18 Unknown Rx Penicillin Vk [Veetids TAB] 500 mg PO Q8HR #42 tablet 10/23/18 Unknown Rx Vit-Fe Fumar-FA [ 1 tab PO QDAY #30 tablet 10/23/18 Unknown Rx Vitamin] Nitrofurantoin [place]/M-Cryst 100 mg PO Q12HR #14 capsule 11/20/18 Unknown Rx [Macrobid CAP] metroNIDAZOLE [Flagyl] 2,000 mg PO ONCE #4 tab 11/20/18 Unknown Rx Miconazole 2% [Monistat 7 Vag 1 applicator VG QHS 7 Days #7 tube 12/04/18 Unknown Rx Cream] Miconazole 2% [Monistat-Derm] 1 applicatio TP BID #1 tube 12/04/18 Unknown Rx metroNIDAZOLE [metroNIDAZOLE 70 gm VG DAILY #5 gel.w.appl 12/04/18 Unknown Rx VAGINAL 0.75% gel] ED Physical Exam - General Limitations: No Limitations General appearance: alert, in no apparent distress - Head Head exam: Present: atraumatic, normocephalic - Eye Eye exam: Present: normal appearance - ENT ENT exam: Present: mucous membranes moist - Respiratory Respiratory exam: Present: normal lung sounds bilaterally. Absent: respiratory distress, wheezes, rales, rhonchi, stridor, accessory muscle use, decreased breath sounds, prolonged expiratory - Cardiovascular Cardiovascular Exam: Present: regular rate, normal rhythm, normal heart sounds. Absent: systolic murmur, diastolic murmur, rubs, gallop - GI/Abdominal GI/Abdominal exam: Present: soft, normal bowel sounds. Absent: tenderness, guarding, rebound, rigid - External exam: Present: erythema (present in the groin ). Absent: swelling, lesions, lacerations, ecchymosis, bleeding Speculum exam: Present: vaginal discharge (copious amounts of yellow/white discharge), cervical discharge (copious amounts of white/yellow discharge ), other (gas welder: JACOB martinez). Absent: vaginal bleeding, foreign body, tissue Bi-manual exam: Present: normal bi-manual exam. Absent: cervical motion tendernes, adnexal tenderness, adnexal mass - Neurological Exam Neurological exam: Present: alert, oriented X3 - Psychiatric Psychiatric exam: Present: normal affect, normal mood - Skin Skin exam: Present: warm, dry, intact ED Course Vital Signs 12/04/18 12/04/18 11:25 14:05 Temperature 98.5 F 98.0 F Pulse Rate 82 79 Respiratory 18 18 Rate Blood Pressure 149/82 Blood Pressure 134/78 [Left] O2 Sat by Pulse 100 100 Oximetry ED Medical Decision Making - Medical Decision Making Patient is a 18-year-old female who presents the emergency room with complaints of a vaginal discharge that began 2 days ago. pt has associated vaginal itching. Denies any dysuria, abdominal pain, vaginal bleeding, fever. She is currently 13 weeks . She is sexually active. She was just treated for Chlamydia and Trichomonas on 11/20. She states her partner was tested and treated. she denies any past medical history or allergies to medications. vss. UA with WBCs at 16 and large leukocyte esterase. wet prep shows trichomonas, yeast, and BV. G/C sent. pt treated with azithromycin and ceftriaxone while in the ED. pt sent home with miconazole and metrogel. pt also given miconazole ointment for fungal findings on the groin. advised to use as prescribed. discussed with pt to please abstain from sexual intercourse. please check back with medical records in 1 week for results of gonorrhea and chlamydia. please have all partners tested and treated. if concerned for any other STDs please be seen by health department or MGMT ANALYST. please be seen by your MGMT ANALYST in the next 2-3 days. return to the emergency room for any new or worsening symptoms. - Differential Diagnosis STD, UTI, yeast, BV, trichomonas Critical care attestation.: If time is entered above; I have spent that time in minutes in the direct care of this critically ill patient, excluding procedure time. ED Disposition Clinical Impression: Trichomonal infection, Yeast infection, Bacterial vaginosis Disposition: - TO HOME OR SELFCARE Is pt being admited?: No Does the pt Need Aspirin: No Condition: Stable Instructions: Bacterial Vaginosis (ED), Trichomoniasis (ED), Vulvovaginal Candidiasis (ED) Additional Instructions: please use medication as prescribed. please abstain from sexual intercourse. please check back with medical records in 1 week for results of gonorrhea and chlamydia. please have all partners tested and treated. if concerned for any other STDs please be seen by health department or MGMT ANALYST. please be seen by your MGMT ANALYST in the next 2-3 days. return to the emergency room for any new or worsening symptoms. Prescriptions: Miconazole 2% [Monistat 7 Vag Cream] 1 applicator VG QHS 7 Days #7 tube metroNIDAZOLE [metroNIDAZOLE VAGINAL 0.75% gel] 70 gm VG DAILY #5 gel.w.appl Miconazole 2% [Monistat-Derm] 1 applicatio TP BID #1 tube Referrals: [facility] MD YANET [Primary Care Provider] - 2-3 Days BISHOP CAMACHO MD [Staff Physician] - 2-3 Days Forms: STI Treatment and Prevention Time of Disposition: 13:23 Print Language: ARMENIAN
[2018-12-04 12:17] LABS: Bacteria,Urine 3+ /HPF (Negative); Bilirubin,Urine NEG (Negative); Blood,Urine NEG (Negative); Color,Urine Yellow (Yellow); Mucus,Urine 3+ /HPF; Urobilinogen,Urine < 2.0 mg/dL (<2.0)
[2018-12-04] MEDS ORDERED: XYLOCAINE 1% MPF 5 mL INFILTRATI ONE (13:22)
[2018-12-04] MEDS ORDERED: ZITHROMAX PO ONE (13:22)
[2018-12-04] MEDS ORDERED: ROCEPHIN IM ONE (13:22)
[2018-12-04 14:06] VITALS: BP 134/78
== END 2018-12-04 14:07 | disposition home or self-care (01) ==
LOC: ED 11:07
DX: O98.311 Other infections with a predominantly sexual mode of transmission complicating pregnancy, first trimester (principal); A59.01 Trichomonal vulvovaginitis; O23.591 Infection of other part of genital tract in pregnancy, first trimester; B96.89 Other specified bacterial agents as the cause of diseases classified elsewhere; Z3A.13 13 weeks gestation of pregnancy; Z79.899 Other long term (current) drug therapy; Z91.09 Other allergy status, other than to drugs and biological substances
CPT/HCPCS: 81001; 87086; 87210; 87591; 96372; 99284; J0696

== ENCOUNTER 2019-03-23 21:18 | Outpatient (CLI) | payer MEDICAID ==
[2019-03-23] MEDS ORDERED: LACTATED RINGERS 1,000 ML IV ONE (22:32)
[2019-03-23] MEDS ORDERED: ONDANSETRON 4 MG/2 ML INJ IV ONE (22:42)
[2019-03-23 22:46] LABS: Bacteria,Urine 3+ /HPF (Negative); Bilirubin,Urine NEG (Negative); Blood,Urine NEG (Negative); Color,Urine Amber (Yellow); Mucus,Urine 3+ /HPF
[2019-03-23 23:35] VITALS: BP 141/76
== END 2019-03-23 23:56 | disposition home or self-care (01) ==
LOC: TRG 21:18
PROVIDERS: ATTEND Obstetrics & Gynecology
DX: O21.2 Late vomiting of pregnancy (principal); O26.893 Other specified pregnancy related conditions, third trimester; R05 Cough; O16.3 Unspecified maternal hypertension, third trimester; O99.333 Smoking (tobacco) complicating pregnancy, third trimester; F17.200 Nicotine dependence, unspecified, uncomplicated; Z3A.29 29 weeks gestation of pregnancy
CPT/HCPCS: 81001; 87086; 96361; 96374; J2405; J7120; 96360

== ENCOUNTER 2020-07-04 08:16 | Emergency (ER) | payer MEDICAID ==
[2020-07-04] MEDS ORDERED: ONDANSETRON 4 MG/2 ML INJ IV ONE (08:30)
[2020-07-04] MEDS ORDERED: SODIUM CHLORIDE 0.9% 1000 ML 1,000 ML IV ONE (08:30)
--- NOTE | 2020-07-04 08:32 | Event Note ---
ED Screening Note Date of service: 07/04/20 Time: 08:31 ED Screening Note: Patient was brought to ED by EMS with c/o abd pain, nausea and vomiting. Patient admits to drinking last night. This initial assessment/diagnostic orders/clinical plan/treatment(s) is/are subject to change based on patients health status, clinical progression and re- assessment by fellow clinical providers in the ED. Further treatment and workup at subsequent clinical providers discretion. Patient/guardian urged not to elope from the ED as their condition may be serious if not clinically assessed and managed. Initial orders include: Abdominal pain order set
[2020-07-04 09:08] LABS: Hematocrit 39.5 % (30.3-42.9); Mean Corpuscular HGB Conc 33 % (30-34); Mean Corpuscular Volume 88 fl (79-97); Platelet Count 302 K/mm3 (140-440); Red Blood Count 4.46 M/mm3 (3.65-5.03); Red Cell Distribution Width 14.9 % (13.2-15.2)
--- NOTE | 2020-07-04 09:17 | Emergency Department Report ---
ED General Adult HPI - General Chief complaint: Abdominal Pain Stated complaint: NAUSEA/VOMITING/DIARRHEA Time Seen by Provider: 07/04/20 08:29 Source: patient Mode of arrival: Wheelchair Limitations: No Limitations - History of Present Illness Initial comments: Patient is a 20-year-old female who presents emergency department for evaluation of moderate crampy constant abdominal pain associate with nausea vomiting and diarrhea times several hours. Patient denies dysuria, denies fever. - Related Data Home Medications Medication Instructions Recorded Confirmed Last Taken Vit-Fe Fumar-FA [ 1 tab PO DAILY 03/23/19 03/23/19 03/23/19 Vitamin] Allergies Allergy/AdvReac Type Severity Reaction Status Date / Time lactose Allergy Rash Verified 10/23/18 09:39 peanut oil Allergy Rash Verified 03/23/19 21:43 ED Review of Systems ROS: Stated complaint: NAUSEA/VOMITING/DIARRHEA Other details as noted in HPI Comment: All other systems reviewed and negative Constitutional: denies: chills, fever Eyes: denies: eye pain, eye discharge, vision change ENT: denies: ear pain, throat pain Respiratory: denies: cough, shortness of breath, wheezing Cardiovascular: denies: chest pain, palpitations Endocrine: no symptoms reported Gastrointestinal: as per HPI, diarrhea Genitourinary: denies: urgency, dysuria, discharge Musculoskeletal: denies: back pain, joint swelling, arthralgia Skin: denies: rash, lesions Neurological: denies: headache, weakness, paresthesias Psychiatric: denies: anxiety, depression Hematological/Lymphatic: denies: easy bleeding, easy bruising ED Past Medical Hx - Past Medical History Previous Medical History?: Yes Hx Hypertension: Yes Hx CVA: No Hx Heart Attack/AMI: No Hx Congestive Heart Failure: No Hx Diabetes: No Hx Deep Vein Thrombosis: No Hx Pulmonary Embolism: No Hx GERD: No Hx Liver Disease: No Hx Renal Disease: No Hx Sickle Cell Disease: No Hx Arthritis: No Hx Headaches / Migraines: No Hx Seizures: No Hx Kidney Stones: No Hx Psychiatric Treatment: No Hx Asthma: No Hx COPD: No Hx Tuberculosis: No Hx Dementia: No Hx HIV: No - Surgical History Hx Coronary Stent: No Hx Open Heart Surgery: No Hx Pacemaker: No Hx Internal Defibrillator: No Hx Cholecystectomy: No Hx Appendectomy: No Hx Breast Surgery: No - Social History Smoking Status: Never Smoker Substance Use Type: Alcohol - Medications Home Medications: Home Medications Medication Instructions Recorded Confirmed Last Taken Type Vit-Fe Fumar-FA [ 1 tab PO DAILY 03/23/19 03/23/19 03/23/19 History Vitamin] ED Physical Exam - General Limitations: No Limitations General appearance: alert, in no apparent distress - Head Head exam: Present: atraumatic, normocephalic - Eye Eye exam: Present: normal appearance - ENT ENT exam: Present: mucous membranes moist - Neck Neck exam: Present: normal inspection - Respiratory Respiratory exam: Present: normal lung sounds bilaterally. Absent: respiratory distress - Cardiovascular Cardiovascular Exam: Present: regular rate, normal rhythm. Absent: systolic murmur, diastolic murmur, rubs, gallop - GI/Abdominal GI/Abdominal exam: Present: soft, normal bowel sounds - Extremities Exam Extremities exam: Present: normal inspection - Back Exam Back exam: Present: normal inspection - Neurological Exam Neurological exam: Present: alert, oriented X3 - Psychiatric Psychiatric exam: Present: normal affect, normal mood - Skin Skin exam: Present: warm, dry, intact, normal color. Absent: rash ED Course Vital Signs 07/04/20 07/04/20 07/04/20 08:27 09:05 10:00 Temperature 97.5 F L Pulse Rate 53 L 86 78 Respiratory 20 Rate Blood Pressure 156/85 Blood Pressure 145/76 125/74 [Left] O2 Sat by Pulse 100 99 99 Oximetry - Reevaluation(s) Reevaluation #1: 07/04/20 11:36 Patient treated with IV NS, IV Zofran, IV Toradol. On reevaluation, patient in no acute distress, abdomen soft nontender. ED Medical Decision Making - Lab Data Result diagrams: 07/04/20 08:47 07/04/20 08:47 Labs 07/04/20 07/04/20 07/04/20 08:47 08:47 08:47 WBC 15.7 H RBC 4.46 Hgb 13.0 Hct 39.5 MCV 88 MCH 29 MCHC 33 RDW 14.9 Plt Count 302 Add Manual Diff Complete Total Counted 100 Seg Neutrophils % Cell Operator Seg Neuts % (Manual) 92.0 H Lymphocytes % (Manual) 6.0 L Monocytes % (Manual) 2.0 Promyelocytes % 0 Nucleated RBC % Not Reportable Seg Neutrophils # Man 14.4 H Band Neutrophils # 0.0 Lymphocytes # (Manual) 0.9 L Abs React Lymphs (Man) 0.0 Monocytes # (Manual) 0.3 Eosinophils # (Manual) 0.0 Basophils # (Manual) 0.0 Metamyelocytes # 0.0 Myelocytes # 0.0 Promyelocytes # 0.0 Blast Cells # 0.0 WBC Morphology Not Reportable Hypersegmented Neuts Not Reportable Hyposegmented Neuts Not Reportable Hypogranular Neuts Not Reportable Smudge Cells Not Reportable Toxic Granulation Not Reportable Toxic Vacuolation Not Reportable Dohle Bodies Not Reportable Pelger-Huet Anomaly Not Reportable Pineda Rods Not Reportable Platelet Estimate Appe Clumped Platelets Not Reportable Plt Clumps, EDTA Not Reportable Large Platelets Not Reportable Giant Platelets Not Reportable Platelet Satelliting Not Reportable Plt Morphology Comment Not Reportable RBC Morphology Normal Dimorphic RBCs Not Reportable Polychromasia Not Reportable Hypochromasia Not Reportable Poikilocytosis Not Reportable Anisocytosis Not Reportable Microcytosis Not Reportable Macrocytosis Not Reportable Spherocytes Not Reportable Pappenheimer Bodies Not Reportable Sickle Cells Not Reportable Target Cells Not Reportable Tear Drop Cells Not Reportable Ovalocytes Not Reportable Helmet Cells Not Reportable Strauss-[place] Bodies Not Reportable [place] Rings Not Reportable Everly Cells Not Reportable Bite Cells Not Reportable Crenated Cell Not Reportable Elliptocytes Not Reportable Acanthocytes (Spur) Not Reportable Rouleaux Not Reportable Hemoglobin C Crystals Not Reportable Schistocytes Not Reportable Malaria parasites Not Reportable Farrukh Bodies Not Reportable Hem Pathologist Commnt No Sodium 137 Potassium 3.9 Chloride 103.7 Carbon Dioxide 23 Anion Gap 14 BUN 10 Creatinine 0.7 Estimated GFR > 60 BUN/Creatinine Ratio 14 Glucose 186 H Calcium 9.2 Total Bilirubin 0.50 Direct Bilirubin < 0.2 Indirect Bilirubin 0.3 AST 40 ALT 18 Alkaline Phosphatase 68 Total Protein 8.0 Albumin 4.0 Albumin/Globulin Ratio 1.0 Lipase 131 H HCG, Qual Negative Plasma/Serum Alcohol 07/04/20 08:47 WBC RBC Hgb Hct MCV MCH MCHC RDW Plt Count Add Manual Diff Total Counted Seg Neutrophils % Seg Neuts % (Manual) Lymphocytes % (Manual) Monocytes % (Manual) Promyelocytes % Nucleated RBC % Seg Neutrophils # Man Band Neutrophils # Lymphocytes # (Manual) Abs React Lymphs (Man) Monocytes # (Manual) Eosinophils # (Manual) Basophils # (Manual) Metamyelocytes # Myelocytes # Promyelocytes # Blast Cells # WBC Morphology Hypersegmented Neuts Hyposegmented Neuts Hypogranular Neuts Smudge Cells Toxic Granulation Toxic Vacuolation Dohle Bodies Pelger-Huet Anomaly Pineda Rods Platelet Estimate Clumped Platelets Plt Clumps, EDTA Large Platelets Giant Platelets Platelet Satelliting Plt Morphology Comment RBC Morphology Dimorphic RBCs Polychromasia Hypochromasia Poikilocytosis Anisocytosis Microcytosis Macrocytosis Spherocytes Pappenheimer Bodies Sickle Cells Target Cells Tear Drop Cells Ovalocytes Helmet Cells Strauss-[place] Bodies [place] Rings [place] Cells Bite Cells Crenated Cell Elliptocytes Acanthocytes (Spur) Rouleaux Hemoglobin C Crystals Schistocytes Malaria parasites Farrukh Bodies Hem Pathologist Commnt Sodium Potassium Chloride Carbon Dioxide Anion Gap BUN Creatinine Estimated GFR BUN/Creatinine Ratio Glucose Calcium Total Bilirubin Direct Bilirubin Indirect Bilirubin AST ALT Alkaline Phosphatase Total Protein Albumin Albumin/Globulin Ratio Lipase HCG, Qual Plasma/Serum Alcohol < 0.01 Vital Signs 07/04/20 07/04/20 07/04/20 08:27 09:05 10:00 Temperature 97.5 F L Pulse Rate 53 L 86 78 Respiratory 20 Rate Blood Pressure 156/85 Blood Pressure 145/76 125/74 [Left] O2 Sat by Pulse 100 99 99 Oximetry - Radiology Data Radiology results: report reviewed [facility] [address] [place] [address] Cat Scan Report Signed Patient: EDDA DUVALL MR#: [id number] : 2000 Acct:[id number] Age/Sex: 20 / F ADM Date: 07/04/20 Loc: ED Attending Dr: Ordering Physician: SUSY AGUILAR MD Date of Service: 07/04/20 Procedure(s): CT abdomen pelvis w con Accession Number(s): [id number] cc: SUSY AGUILAR MD CT ABDOMEN AND PELVIS WITH CONTRAST INDICATION / CLINICAL INFORMATION: Right lower quadrant pain. TECHNIQUE: Axial CT images were obtained through the abdomen and pelvis after 100 cc of Omnipaque [address] scans at this location are performed using CT dose reduction for ALARA by means of automated exposure control. COMPARISON: None available. FINDINGS: LOWER CHEST: No significant abnormality. LIVER: No significant abnormality. GALLBLADDER: No significant abnormality. BILE DUCTS: No significant abnormality. PANCREAS: No significant abnormality. SPLEEN: No significant abnormality. ADRENALS: No significant abnormality. RIGHT KIDNEY and URETER: No significant abnormality. LEFT KIDNEY and URETER: No significant abnormality. STOMACH and SMALL BOWEL: No significant abnormality. COLON: No significant abnormality. APPENDIX: No significant abnormality. PERITONEUM: No free fluid. No free air. No fluid collection. LYMPH NODES: No significant adenopathy. AORTA and ARTERIES: No significant abnormality. IVC and VEINS: No significant abnormality. URINARY BLADDER: No significant abnormality. REPRODUCTIVE ORGANS: There is a 1.8 cm cyst in the right ovary. ADDITIONAL FINDINGS: None. SKELETAL SYSTEM: No acute abnormality. IMPRESSION: 1. There is no obstruction, inflammation, or free air. The appendix is unremarkable. 2. There is a 1.8 cm cyst in the right ovary characteristic of physiologic cyst. Signer Name: Joe Avery MD Signed: 07/04/2020 10:50 AM Workstation Name: [id number] Transcribed By: SS Dictated By: Joe Avery MD Electronically Authenticated By: Joe Avery MD Signed Date/Time: 07/04/20 1050 DD/ 1042 TD/TT: Critical care attestation.: If time is entered above; I have spent that time in minutes in the direct care of this critically ill patient, excluding procedure time. ED Disposition Clinical Impression: Abdominal pain, Ovarian cyst, Nausea vomiting and diarrhea Disposition: - TO HOME OR SELFCARE Is pt being admited?: No Condition: Stable Instructions: Diarrhea, Adult, Abdominal Pain, Adult, [id number], Nausea and Vomiting, Adult, Ovarian Cyst, Abdominal Pain (ED) Additional Instructions: Follow-up with primary care doctor in 1 to 2 days for reevaluation. Return to the emergency department for worsening symptoms. Referrals: PRIMARY CAREMD [Primary Care Provider] - 3-5 Days
[2020-07-04 09:31] LABS: Alanine Aminotransferase 18 units/L (7-56); Blood Urea Nitrogen 10 mg/dL (7-17); Calcium 9.2 mg/dL (8.4-10.2); Hemolysis Index 7
[2020-07-04 09:34] LABS: BUN/Creatinine Ratio 14; Bilirubin,Direct < 0.2 mg/dL (0-0.2)
[2020-07-04 09:45] LABS: Total Cells Counted 100
[2020-07-04 09:47] LABS: Platelet Estimate Appe; RBC Morphology Normal
--- NOTE | 2020-07-04 10:54 | Cat Scan Report ---
CT ABDOMEN AND PELVIS WITH CONTRAST INDICATION / CLINICAL INFORMATION: Right lower quadrant pain. TECHNIQUE: Axial CT images were obtained through the abdomen and pelvis after 100 cc of Omnipaque [address] scans at this location are performed using CT dose reduction for ALARA by means of automat ed exposure control. COMPARISON: None available. FINDINGS: LOWER CHEST: No significant abnormality. LIVER: No significant abnormality. GALLBLADDER: No significant abnormality. BILE DUCTS: No significant abnormality. PANCREAS: No significant abnormality. SPLEEN: No significant abnormality. ADRENALS: No significant abnormality. RIGHT KIDNEY and URETER: No significant abnormality. LEFT KIDNEY and URETER: No significant abnormality. STOMACH and SMALL BOWEL: No significant abnormality. COLON: No significant abnormality. APPENDIX: No significant abnormality. PERITONEUM: No free fluid. No free air. No fluid collection. LYMPH NODES: No significant adenopathy. AORTA and ARTERIES: No significant abnormality. IVC and VEINS: No significant abnormality. URINARY BLADDER: No significant abnormality. REPRODUCTIVE ORGANS: There is a 1.8 cm cyst in the right ovary. ADDITIONAL FINDINGS: None. SKELETAL SYSTEM: No acute abnormality. IMPRESSION: 1. There is no obstruction, inflammation, or free air. The appendix is unremarkable. 2. There is a 1.8 cm cyst in the right ovary characteristic of physiologic cyst. Signer Name: Joe Avery MD Signed: 07/04/2020 10:50 AM Workstation Name: [id number]
[2020-07-04 11:44] LABS: Bilirubin,Urine NEG (Negative); Blood,Urine NEG (Negative); Color,Urine Yellow (Yellow); Mucus,Urine 3+ /HPF; Urobilinogen,Urine < 2.0 mg/dL (<2.0)
[2020-07-04 12:22] VITALS: BP 124/79
== END 2020-07-04 12:36 | disposition home or self-care (01) ==
LOC: ED 08:16
DX: N83.201 Unspecified ovarian cyst, right side (principal); I10 Essential (primary) hypertension; Z79.899 Other long term (current) drug therapy; Z91.038 Other insect allergy status; Z91.010 Allergy to peanuts
CPT/HCPCS: 36415; 74177; 80048; 80076; 81001; 83690; 84703; 85007; 85025; 96361; 96374; 99284; J2405; J7030; Q9967; 80320; G0480

== ENCOUNTER 2021-07-20 12:59 | Outpatient (CLI) | payer MEDICAID ==
[2021-07-20 13:51] VITALS: BP 143/63
[2021-07-20] MEDS ORDERED: LACTATED RINGERS 1,000 ML IV ONE (14:45)
[2021-07-20 15:02] LABS: Bacteria,Urine 1+ /HPF (Negative); Bilirubin,Urine NEG (Negative); Blood,Urine NEG (Negative); Color,Urine Yellow (Yellow); Mucus,Urine 3+ /HPF; Urobilinogen,Urine < 2.0 mg/dL (<2.0)
[2021-07-20] MEDS ORDERED: LIDOCAINE-MPF (1%) 10 MG/1 ML VIAL 5 ML INFILTRATI ONE (16:00)
[2021-07-20] MEDS ORDERED: LIDOCAINE (1%) 10 MG/1 ML VIAL 20 ML MDV INFILTRATI ONE (16:00)
--- NOTE | 2021-07-20 18:30 | Ultrasound Report ---
ULTRASOUND OBSTETRIC LIMITED INDICATION / CLINICAL INFORMATION: pain. Clinical Gestational Age (GA) in weeks, days: 27 weeks 6 days TECHNIQUE: Transabdominal. COMPARISON: None available. FINDINGS: Single live uterine . HEART RATE (beats per minute): 145 AMNIOTIC FLUID INDEX (cm) = 17.2 (normal = 7-24 cm) PRESENTATION: Breech. ADDITIONAL FINDINGS: Posterior placenta is free of the os. No lifting or separation of the placenta. No retroplacental hematoma. IMPRESSION: 1. Single live intrauterine in breech presentation. 2. No significant abnormality. Posterior placenta is free of the os without evidence of retroplacenta l hematoma. Signer Name: Torin Maldonado MD Signed: 07/20/2021 6:25 PM Workstation Name: [id number]
== END 2021-07-20 16:31 | disposition home or self-care (01) ==
LOC: TRG 12:59 → APU 13:00 → TRG 16:31
PROVIDERS: ATTEND Obstetrics & Gynecology
DX: O26.892 Other specified pregnancy related conditions, second trimester (principal); R10.2 Pelvic and perineal pain; R30.9 Painful micturition, unspecified; Z3A.27 27 weeks gestation of pregnancy
CPT/HCPCS: 59025; 76815; 81001; 96372; J0696; J3490